=== PATIENT | female | born 1985 | race Caucasian/White ===

== ENCOUNTER 2017-04-21 11:02 | Outpatient (RCR) | payer OTHER | END 2017-05-30 | disposition home or self-care (01) | LOC: CARD 11:02 | PROVIDERS: ATTEND Nurse Practitioner Family | DX: R00.2 Palpitations (principal) | CPT/HCPCS: 93225; 93226 ==

== ENCOUNTER → 2017-04-21 | Outpatient (CLI) | payer OTHER ==
[~2017-04-21] MED LIST: ACHYD1T PO; AZIT-21 PO; DCS100C PO; HYDR-3583 PO; IBP800T PO; ONDAN4ODT PO; PRC25SU PR; PREN1TAB39; PREN1TAB39 PO
--- NOTE | 2017-04-21 12:55 | Diagnostic Imaging Report ---
INDICATION: Enlarged thyroid gland TECHNIQUE: Grayscale sonographic images of the thyroid gland. CORRELATION STUDY: None FINDINGS: RIGHT LOBE: 4.5 x 1.4 x 1.5 cm. There is normal echotexture about the right lobe. LEFT LOBE: 3.9 x 1.6 x 1.3 cm. There is normal echotexture about the left lobe. Isthmus appears unremarkable. IMPRESSION: Right lobe slightly elongated but otherwise within normal limits. There is otherwise unremarkable appearing thyroid ultrasound examination. Dictated by: Dictated on workstation # [id number]
== END ==
LOC: RAD 10:55
PROVIDERS: ATTEND Nurse Practitioner Family
DX: E04.9 Nontoxic goiter, unspecified (principal)
CPT/HCPCS: 76536

== ENCOUNTER 2018-04-14 11:34 | Outpatient (CLI) | payer OTHER ==
[~2018-04-14] VITALS: Ht 160 cm; Wt 97.1 kg
[2018-04-15] MEDS ORDERED: OXYC-197 PO (12:06)
[2018-04-15] MEDS ORDERED: IBUP-1780 PO (12:06)
== END 2018-04-14 13:28 | disposition home or self-care (01) ==
LOC: PREOP 11:34
PROVIDERS: ATTEND Obstetrics & Gynecology
DX: Z01.818 Encounter for other preprocedural examination (principal)

== ENCOUNTER 2018-04-15 10:09 | Day surgery (SDC) | payer OTHER ==
[~2018-04-15] VITALS: Ht 160 cm; Wt 97.1 kg
[2018-04-15 10:15] VITALS: BP 140/92
[2018-04-15 10:43] LABS: BASOPHILS % (AUTO) 0 % (0-10); EOSINOPHILS # (AUTO) 0.1 10^3/uL (0.0-0.3); EOSINOPHILS % (AUTO) 1 % (0-10); HEMATOCRIT 38 % (35-52); HEMOGLOBIN 13.6 G/DL (11.5-16.0); LYMPHOCYTES # (AUTO) 1.7 X 10^3 (1.0-4.0); LYMPHOCYTES % (AUTO) 18 % (12-44); MEAN CORPUSCULAR HEMOGLOBIN 30 PG (25-34); MEAN CORPUSCULAR HGB CONC 36 G/DL (32-36); MEAN CORPUSCULAR VOLUME 83 FL (80-99); MEAN PLATELET VOLUME 10.2 FL (7.4-10.4); MONOCYTES # (AUTO) 0.4 X 10^3 (0.0-1.0); MONOCYTES % (AUTO) 4 % (0-12); NEUTROPHILS # (AUTO) 7.4 X 10^3 (1.8-7.8); NEUTROPHILS % (AUTO) 78 % (42-75); PLATELET COUNT 196 10^3/uL (130-400); RED BLOOD COUNT 4.59 10^6/uL (4.35-5.85); RED CELL DISTRIBUTION WIDTH 12.9 % (10.0-14.5); WHITE BLOOD COUNT 9.5 10^3/uL (4.3-11.0)
[2018-04-15] MEDS ORDERED: ceFAZolin INJECTION 1,000 MG in NS (IVPB) 50 ML IV ONE (10:45)
[2018-04-15] MEDS ORDERED: SUCCINYLCHOLINE INJ 100 MG/5 ML SYR ONE (11:29)
[2018-04-15] MEDS ORDERED: ROCURONIUM 10 MG/ML 5 ML SYRINGE IV ONE (11:29)
[2018-04-15] MEDS ORDERED: ONDANSETRON 4 MG/2 ML (SDV) Z0FRAN ONE (11:29)
[2018-04-15] MEDS ORDERED: LACTATED RINGERS 0 ML IV ONE (11:29)
[2018-04-15] MEDS ORDERED: proPOfol 200 MG/20 ML (DIPRIVAN) VIAL IV ONE (11:29)
[2018-04-15] MEDS ORDERED: LIDOCAINE PF 2% 5 ML (XYLOCAINE) VIAL ONE (11:29)
[2018-04-15] MEDS ORDERED: MIDAZOLAM 2 MG/2 ML (VERSED) VIAL IV ONE (11:30)
[2018-04-15] MEDS ORDERED: MIDAZOLAM 2 MG/2 ML (VERSED) VIAL ONE (11:30)
[2018-04-15] MEDS ORDERED: fentaNYL INJECTION 100 MCG/2 ML AMP ONE (11:30)
[2018-04-15] MEDS: LACTATED RINGERS 1,000 ML IV PRN ×2 (11:33→12:53)
--- NOTE | 2018-04-15 12:02 | Progress Note-Pre Operative ---
Pre-Operative Progress Note H&P Reviewed The H&P was reviewed, patient examined and no changes noted. Date Seen by Provider: Apr 15, 2018 Time Seen by Provider: 12:02 Date H&P Reviewed: Apr 15, 2018 Time H&P Reviewed: 12:02 Pre-Operative Diagnosis: Missed /intrauterine demise KY MENDOZA MD Apr 15, 2018 12:02 pm
[2018-04-15] MEDS ORDERED: D5 LR IV SOLUTION 1,000 ML IV SCH (12:03)
--- NOTE | 2018-04-15 12:03 | Progress Note-Post Operative ---
Post-Operative Progess Note Surgeon (s)/Speech Writer (s) Surgeon KY MENDOZA MD Speech Writer: NONE Pre-Operative Diagnosis Missed /intrauterine demise Post-Operative Diagnosis Same with pathology pending Procedure & Operative Findings Date of Procedure 04/15/18 Procedure Performed/Findings D&C for first trimester missed Anesthesia Type GETA Estimated Blood Loss Estimated blood loss (mL): 50-100cc Specimens/Packing Specimens Removed Uterine contents/products of conception Packing: None KY MENDOZA MD Apr 15, 2018 12:03
[2018-04-15] MEDS ORDERED: OXYC-197 PO (12:06)
[2018-04-15] MEDS ORDERED: IBUP-1780 PO (12:06)
--- NOTE | 2018-04-15 12:07 | Discharge Instructions ---
Discharge Instructions Discharge Medications New, Converted or Re-Newed RX: RX on Chart Patient Instructions Patient Instructions: As directed Return to The Hospital For: As directed Activity & Diet Discharge Diet: No Restrictions Activity as Tolerated: No Orders-Post D/C & Referrals Follow Up Appt: Call to make follow up appt. for patient in 2 weeks. Activity: as tolerated. Please call in RX to patient pharmacy. Diet: As tolerated-Clear Liquids only if nauseated. may shower or tub bathe as desired. No nothing per vagina (no tampons, douching, or intercoarse) for 2 weeks. Patient to return to the clinic as soon as possible for: Temperature greater than 101F, Severe Pain, Foul discharge from incision or vagina, Excessive Bleeding (more than a period). KY MENDOZA MD Apr 15, 2018 12:07 pm
[2018-04-15] MEDS ORDERED: MEPERIDINE (DEMEROL) INJ 100 MG/ML IM ONE (12:15)
[2018-04-15] MEDS ORDERED: PROMETHAZINE INJ 25 MG/ML (PHENERGAN) AMP IM ONE (12:15)
[2018-04-15] MEDS ORDERED: KETOROLAC 30 MG/ML VIAL IVP ONE (12:15)
[2018-04-15] MEDS ORDERED: ONDANSETRON 4 MG/2 ML (SDV) Z0FRAN IVP PRN ×2 (12:15→13:00)
[2018-04-15] MEDS ORDERED: oxyCODONE/APAP 5/325MG (PERCOCET 5) TABLET PO PRN (12:15)
[2018-04-15] MEDS ORDERED: SEVOFLURANE (ULTANE) 15 ML INHAL SOLN ONE (12:40)
[2018-04-15] MEDS ORDERED: morphine INJ 10 MG/ML 1ML (SYR OR VIAL) ONE (12:47)
[2018-04-15] MEDS: morphine INJ 10 MG/ML 1ML (SYR OR VIAL) IVP PRN ×2 (12:54→13:00)
[2018-04-15] MEDS ORDERED: LACTATED RINGERS 1,000 ML IV ONE (12:55)
[2018-04-15] MEDS ORDERED: PROMETHAZINE INJ 25 MG/ML (PHENERGAN) AMP IVP PRN (13:00)
[2018-04-15] MEDS ORDERED: MEPERIDINE (DEMEROL) INJ 50 MG/ML IVP PRN (13:00)
[2018-04-15] MEDS ORDERED: HYDROmorphone 2 MG/ML VIAL (DILAUDID) IV PRN (13:00)
[2018-04-15 13:35] VITALS: BP 104/72
--- NOTE | 2018-04-15 13:47 | OPERATIVE REPORT ---
DATE OF SERVICE: 04/15/2018 PREOPERATIVE DIAGNOSIS: First trimester missed . POSTOPERATIVE DIAGNOSIS: First trimester missed . OPERATIVE PROCEDURE: D and C. OPERATIVE DESCRIPTION: With the patient in the supine position under satisfactory general anesthesia, she was repositioned in dorsal lithotomy position in the [facility][note 3] stirrups and prepped and draped in the usual fashion for vaginal surgery. Urinary bladder was drained with a straight catheter. A weighted speculum was placed in the posterior fornix of vagina, cervix was exposed and grasped anteriorly with a single tooth tenaculum. Uterus was sounded to 14.5 cm with uterine sound. The cervix was then serially dilated with Patrick dilators to a #20 Patrick and then a 19 Hegar dilator was the final step in dilation. A curved suction curette was then introduced. A #10 uterine cavity was curettaged with removal of a large amount of trophoblastic and decidual appearing tissue, blood clot, amniotic fluid and debris. All of that tissue was collected and sent to pathology for permanent section. The endometrial cavity was sharply curettaged in all 4 quadrants to good uterine cry. The curved suction curette was reintroduced. All blood clot and debris was evacuated from the uterine cavity. The tenaculum was removed. There was no bleeding from the puncture site. There was minimal bleeding from the cervical os. The uterus was 12 week size prior to the procedure and at this point now was decreased in size to 8 to 10 weeks and was nicely contracted. The patient tolerated the procedure well. Sponge and needle counts were correct at the end of procedure. Estimated blood loss was around 5200 mL. The patient was uneventfully awakened from her general anesthesia and transferred to the recovery room in stable condition with plans for discharge home PAR. Job ID: [id number] DocumentID: [id number] Dictated Date: 04/15/2018 12:35:47 Vermin Exterminator Date: 04/15/2018 13:46:47 Dictated By: KY MENDOZA MD
--- NOTE | 2018-04-15 14:01 | Anesthesia-General Post-Op ---
General Patient Condition Mental Status/LOC: Same as Preop Cardiovascular: Satisfactory Nausea/Vomiting: Absent Respiratory: Satisfactory Pain: Controlled Complications: Absent Post Op Complications Complications None Follow Up Care/Instructions Patient Instructions None needed. Anesthesia/Patient Condition Patient Condition Patient is doing well, no complaints, stable vital signs, no apparent adverse anesthesia problems. No complications reported per nursing. D/C home per [facility] Criteria: Yes ALENA BENITO CRNA Apr 15, 2018 14:01
[2018-04-15 14:05] VITALS: BP 113/68
[2018-04-15] MEDS ORDERED: oxyCODONE/APAP 5/325MG (PERCOCET 5) TABLET ONE (14:08)
[2018-04-15 14:35] VITALS: BP 126/81
--- OUTSIDE RECORDS SUMMARY | 2018-04-16 11:11 | XMS REPORT ---
Author Author [facility] Address [address] [place] [address] Care Team Providers Care Scientific Technical Writer Name Role Phone DANNIE BOYCE Unavailable PROBLEMS Unknown Problems ALLERGIES Substance Reaction Event Type Date Status PredniSONE Unknown Drug Allergy Oct, Active SOCIAL HISTORY Never Assessed PLAN OF CARE Activity Details Follow Up prn Reason: VITAL SIGNS Weight 197.0 lbs 2016-10-30 Temperature 97.6 degrees Fahrenheit 2016-10-30 Heart Rate 92 bpm 2016-10-30 Respiratory Rate 20 2016-10-30 Blood pressure systolic 128 mmHg 2016-10-30 Blood pressure diastolic 84 mmHg 2016-10-30 MEDICATIONS Medication Instructions Dosage Frequency Start Date End Date Duration Status Amoxicillin Active Azithromycin 250 MG Orally Once a day 2 tablets on the first day, then 1 tablet daily for 4 days 24h Oct, Oct, 5 day(s) Active Wellbutrin Active RESULTS No Results PROCEDURES No Known procedures IMMUNIZATIONS No Known Immunizations
--- OUTSIDE RECORDS SUMMARY | 2018-04-16 11:11 | XMS REPORT ---
Author Author ALIRIO CAMPOS [facility] Address [address] [place] [address] Care Team Providers Care Rehabilitation Services Aide Name Role Phone ALIRIO CAMPOS Unavailable PROBLEMS Unknown Problems ALLERGIES No Information ENCOUNTERS Encounter Location Date Diagnosis [facility] [address] [facility] [id number] [address] Feb, Encounter for immunization Z23 [facility] IN [facility] [address] [facility] [id number], [place] [address] Oct, Acute upper respiratory infection, unspecified J06.9 and Other viral agents as the cause of diseases classified elsewhere B97.89 IMMUNIZATIONS Vaccine Route Administration Date Status TDAP (BOOSTRIX) IM Intramuscular March 09, 2017 Administered VARICELLA IM Intramuscular March 09, 2017 Administered SOCIAL HISTORY Never Assessed REASON FOR VISIT TDAP and Varicella Vx. JOE Slade. PLAN OF CARE VITAL SIGNS MEDICATIONS Unknown Medications RESULTS No Results PROCEDURES Procedure Date Ordered Result Body Site TDAP (BOOSTRIX) March 09, 2017 VARICELLA March 09, 2017 IMMUNIZATION ADMIN, EACH ADD (please include units) March 09, 2017 SINGLE IMMUNIZATION ADMIN March 09, 2017 INSTRUCTIONS MEDICATIONS ADMINISTERED No Known Medications
== END 2018-04-15 14:40 | disposition home or self-care (01) ==
LOC: SDC 10:09
PROVIDERS: ATTEND Obstetrics & Gynecology
DX: O02.1 Missed abortion (principal); Z11.2 Encounter for screening for other bacterial diseases; J45.909 Unspecified asthma, uncomplicated
CPT/HCPCS: 36415; 85025; 87081

== ENCOUNTER → 2019-08-23 | Outpatient (CLI) | payer OTHER ==
[~2019-08-23] MED LIST changes: +IBUP-1780 PO; +OXYC1TAB87 PO
[2019-08-23 11:22] LABS: URINE CREATININE FOR RATIO 38 MG/DL (30-125); URINE PROTEIN FOR RATIO ONLY < 6 MG/DL (6-12)
== END ==
LOC: LABNPT 10:54
PROVIDERS: ATTEND Obstetrics & Gynecology
DX: O14.03 Mild to moderate pre-eclampsia, third trimester (principal)
CPT/HCPCS: 82570; 84156

== ENCOUNTER → 2019-09-01 | Outpatient (CLI) | payer OTHER, BC ==
[~2019-09-01] MED LIST changes: +ACET-2469 PO; +ASPI-999 PO; +DOCU100C37 PO; +LORA10TA76 PO; +OXYC1TAB12 PO; +PREN-142 PO
== END ==
LOC: LABNPT 09:00
PROVIDERS: ATTEND Obstetrics & Gynecology
DX: Z01.89 Encounter for other specified special examinations (principal)
CPT/HCPCS: 82570; 84156

== ENCOUNTER 2019-09-05 03:16 | Inpatient (IN) | payer OTHER, BC ==
[~2019-09-05] VITALS: Ht 160 cm; Wt 103.8 kg
[~2019-09-05 03:16] MED LIST changes: -ACET-2469 PO; -ASPI-999 PO; -DOCU100C37 PO; -LORA10TA76 PO; -OXYC1TAB12 PO; -PREN-142 PO
--- NOTE | 2019-09-05 03:25 | NUR ---
EYAL REDDY presented to unit via AMBULATORY from ED, accompanied by S/O, with c/o CONTRACTIONS. EYAL REDDY weighed, gowned, voided, and to bed. EFHM and TOCO applied, VS taken. EYAL REDDY oriented to bed controls, call light, TV, heat, and A/C controls. ABOVE DETAILS AND FOLLOWING ASSESSMENTS PERFORMED PER OSBALDO URBANO.
[2019-09-05] MEDS ORDERED: D5 LR IV SOLUTION 1,000 ML IV ONE ×2 (03:48→05:30)
[2019-09-05] MEDS ORDERED: LOPERAMIDE 2 MG (IMODIUM) TABLET PO ONE (04:00)
[2019-09-05] MEDS ORDERED: LOPERAMIDE 2 MG (IMODIUM) TABLET PO PRN (04:00)
[2019-09-05 04:21] LABS: BASOPHILS % (AUTO) 0 % (0-10); EOSINOPHILS % (AUTO) 0 % (0-10); HEMATOCRIT 39 % (35-52); HEMOGLOBIN 13.2 G/DL (11.5-16.0); LYMPHOCYTES # (AUTO) 0.4 X 10^3 (1.0-4.0); LYMPHOCYTES % (AUTO) 4 % (12-44); MEAN CORPUSCULAR HEMOGLOBIN 29 PG (25-34); MEAN CORPUSCULAR HGB CONC 34 G/DL (32-36); MEAN CORPUSCULAR VOLUME 86 FL (80-99); MEAN PLATELET VOLUME 11.3 FL (7.4-10.4); MONOCYTES # (AUTO) 0.4 X 10^3 (0.0-1.0); MONOCYTES % (AUTO) 3 % (0-12); NEUTROPHILS # (AUTO) 10.4 X 10^3 (1.8-7.8); NEUTROPHILS % (AUTO) 93 % (42-75); PLATELET COUNT 154 10^3/uL (130-400); RED CELL DISTRIBUTION WIDTH 15.6 % (10.0-14.5); WHITE BLOOD COUNT 11.2 10^3/uL (4.3-11.0)
[2019-09-05] MEDS: ONDANSETRON 4 MG/2 ML (SDV) Z0FRAN IVP PRN ×2 (04:22→06:22)
[2019-09-05 04:23] LABS: CLARITY,URINE CLEAR; COLOR,URINE YELLOW; GLUCOSE, URINE (UA) NEGATIVE (NEGATIVE); KETONES,URINE 3+ (NEGATIVE); LEUKOCYTE ESTERASE ,URINE NEGATIVE (NEGATIVE); NITRITE,URINE NEGATIVE (NEGATIVE); PROTEIN,URINE 1+ (NEGATIVE)
[2019-09-05] MEDS: D5 LR IV SOLUTION 1,000 ML IV SCH ×3 (04:23→17:30)
[2019-09-05 04:41] LABS: BUN/CREATININE RATIO 17; CARBON DIOXIDE 16 MMOL/L (21-32); CHLORIDE 107 MMOL/L (98-107); CREATININE SERUM 0.66 MG/DL (0.60-1.30); POTASSIUM 4.1 MMOL/L (3.6-5.0); SODIUM 138 MMOL/L (135-145)
[2019-09-05 04:42] LABS: ALANINE AMINOTRANSFERASE 11 U/L (0-55); ALBUMIN 3.6 GM/DL (3.2-4.5); ALKALINE PHOSPHATASE 98 U/L (40-136); BILIRUBIN,TOTAL 0.4 MG/DL (0.1-1.0); CALCIUM 9.4 MG/DL (8.5-10.1); GFR ESTIMATED > 60; GLUCOSE 100 MG/DL (70-105); TOTAL PROTEIN 6.4 GM/DL (6.4-8.2)
[2019-09-05 04:43] VITALS: BP 121/77
[2019-09-05 04:44] LABS: BACTERIA,URINE MODERATE /HPF; SQUAMOUS EPITHELIAL CELL,UR 0-2 /HPF
[2019-09-05 04:45] LABS: BILIRUBIN,URINE 1+ (NEGATIVE)
[2019-09-05] MEDS ORDERED: PREN-142 PO (05:04)
[2019-09-05] MEDS ORDERED: ASPI-999 PO (05:04)
[2019-09-05] MEDS ORDERED: LORA10TA76 PO (05:05)
[2019-09-05] MEDS ORDERED: ACET-2469 PO (05:06)
[2019-09-05 07:00] VITALS: BP 122/74
--- NOTE | 2019-09-05 07:50 | NUR ---
Dr Chisholm here to see pt. Plan to keep OBS overnight and do C/S tomorrow. Orders rec'd to advance diet as tolerated, betamethasone, and NST q shift. Addendum: 09/05/19 at 0928 by AJ SUERO RN Fresh ice water and sprite provided.
--- NOTE | 2019-09-05 07:52 | History & Physical ---
History and Physical Date Seen by Provider: Sep 05, 2019 Time Seen by Provider: 07:46 This patient is a 34-year-old A1 2 white female currently at 36- 6/7 weeks' gestation. Her previous pregnancies were complicated by preeclampsia and severe preeclampsia. Patient presented with complaint of nausea vomiting and diarrhea that was unrelenting. She also complained of painful and frequent contractions. She denies rupture membranes or bleeding. She has mild headache. A GBS culture done after 35 weeks gestation was negative. Allergies are to prednisone Medications are LDA, vitamins and Claritin when necessary Medical social and surgical histories are per the antepartum record HEENT exam is normal Neck is supple no lymphadenopathy no thyromegaly Abdomen is gravid soft nontender nondistended Extremities show no clubbing or cyanosis. There is no Homans sign. There is fairly notable pretibial pitting edema. Pelvic exam is deferred - on admission the cervix was closed and thick per the admission nurse monitor shows persistent and regular contractions contractions that are spacing out some from the frequency at time of admission. heart rate pattern is normal and reassuring. Vital Signs Date Time Temp Pulse Resp B/P (MAP) Pulse Ox O2 Delivery O2 Flow Rate FiO2 09/05/19 07:00 114 122/74 (90) 09/05/19 04:43 36.7 139 18 97 Room Air 09/05/19 03:50 122 98 Room Air Laboratory Tests Test 09/05/19 04:00 Range/Units White Blood Count 11.2 H 4.3-11.0 10^3/uL Red Blood Count 4.53 4.35-5.85 10^6/uL Hemoglobin 13.2 11.5-16.0 G/DL Hematocrit 39 35-52 % Mean Corpuscular Volume 86 80-99 FL Mean Corpuscular Hemoglobin 29 25-34 PG Mean Corpuscular Hemoglobin Concent 34 32-36 G/DL Red Cell Distribution Width 15.6 H 10.0-14.5 % Platelet Count 154 130-400 10^3/uL Mean Platelet Volume 11.3 H 7.4-10.4 FL Neutrophils (%) (Auto) 93 H 42-75 % Lymphocytes (%) (Auto) 4 L 12-44 % Monocytes (%) (Auto) 3 0-12 % Eosinophils (%) (Auto) 0 0-10 % Basophils (%) (Auto) 0 0-10 % Neutrophils # (Auto) 10.4 H 1.8-7.8 X 10^3 Lymphocytes # (Auto) 0.4 L 1.0-4.0 X 10^3 Monocytes # (Auto) 0.4 0.0-1.0 X 10^3 Eosinophils # (Auto) 0.0 0.0-0.3 10^3/uL Basophils # (Auto) 0.0 0.0-0.1 10^3/uL Urine Color YELLOW Urine Clarity CLEAR Urine pH 6.0 5-9 Urine Specific [place] 1.025 H 1.016-1.022 Urine Protein 63 H 6-12 MG/DL Urine Glucose (UA) NEGATIVE NEGATIVE Urine Ketones 3+ H NEGATIVE Urine Nitrite NEGATIVE NEGATIVE Urine Bilirubin 1+ H NEGATIVE Urine Urobilinogen 0.2 < = 1.0 MG/DL Urine Leukocyte Esterase NEGATIVE NEGATIVE Urine RBC (Auto) TRACE-I NEGATIVE Urine RBC NONE /HPF Urine WBC NONE /HPF Urine Squamous Epithelial Cells 0-2 /HPF Urine Crystals NONE /LPF Urine Bacteria MODERATE H /HPF Urine Casts NONE /LPF Urine Mucus MODERATE H /LPF Urine Culture Indicated NO Urine Creatinine 244 H 30-125 MG/DL Urine Protein/Creatinine Ratio 0.26 Sodium Level 138 135-145 MMOL/L Potassium Level 4.1 3.6-5.0 MMOL/L Chloride Level 107 98-107 MMOL/L Carbon Dioxide Level 16 L 21-32 MMOL/L Anion Gap 15 H 5-14 MMOL/L Blood Urea Nitrogen 11 7-18 MG/DL Creatinine 0.66 0.60-1.30 MG/DL Estimat Glomerular Filtration Rate > 60 BUN/Creatinine Ratio 17 Glucose Level 100 70-105 MG/DL Uric Acid 6.0 2.6-7.2 MG/DL Calcium Level 9.4 8.5-10.1 MG/DL Corrected Calcium 9.7 8.5-10.1 MG/DL Total Bilirubin 0.4 0.1-1.0 MG/DL Aspartate Amino Transf (AST/SGOT) 15 5-34 U/L Alanine Aminotransferase (ALT/SGPT) 11 0-55 U/L Alkaline Phosphatase 98 40-136 U/L Lactate Dehydrogenase 149 125-220 U/L Total Protein 6.4 6.4-8.2 GM/DL Albumin 3.6 3.2-4.5 GM/DL Lab work is consistent with mild dehydration and with increasing proteinuria Assessment and plan 36-6/7 week gestation in patient developing preeclampsia as evidenced by urine protein creatinine ratio of 0.26 compared to a level 0.11 four days ago Patient is having fairly regular contractions consistent with labor. At this point we would not consider tocolysis but would proceed with if labor is confirmed Patient appears to have a viral syndrome with persistent nausea vomiting and diarrhea. She is being hydrated previous symptomatically. We'll continue that management through the day and when the patient obtains 37 weeks' gestation for her consider proceeding with delivery due to her preeclampsia Viral syndrome/early preeclampsia/ labor Allergies and Home Medications Allergies Coded Allergies: prednisone (Unverified Allergy, Unknown, 04/15/18) Home Medications Acetaminophen/Diphenhydramine 1 Each Tablet, 1 EACH PO DAILY, (Reported) Aspirin 81 Mg Tab.chew, 81 MG PO DAILY, (Reported) Loratadine 10 Mg Tablet, 10 MG PO DAILY, (Reported) Vit No.124/Iron/FA 1 Each Tablet, 1 EACH PO DAILY, (Reported) Patient Home Medication List Home Medication List Reviewed: Yes KY MENDOZA MD Sep 05, 2019 07:52
[2019-09-05 08:00] VITALS: BP 131/76
[2019-09-05] MEDS: BETAMETHASONE ACE/NA PHOS 6 MG/ML (CELESTONE SOLUSPAN) IM SCH (08:49)
--- NOTE | 2019-09-05 09:00 | NUR ---
Pt moved to room 302 via ambulation accompanied by RN. All personal belongings moved along with pt. Pt oriented to room and call light. No questions or needs voiced at this time.
--- NOTE | 2019-09-05 11:50 | NUR ---
To room to check on pt. Pt reports continued nausea and diarrhea x2. Dr. Chisholm called and notified of zofran usage to this point, and updated on continued diarrhea, RN requesting Reglan or Promethazine. Orders rec'd.
[2019-09-05] MEDS ORDERED: METOCLOPRAMIDE INJ 10 MG/2 ML (REGLAN) ONE (11:59)
[2019-09-05 12:00] VITALS: BP 146/81
[2019-09-05] MEDS: METOCLOPRAMIDE INJ 10 MG/2 ML (REGLAN) IVP SCH (12:05)
[2019-09-05] MEDS ORDERED: CATHETER FLUSH 10 ML SYR IV PRN (12:15)
--- NOTE | 2019-09-05 15:02 | NUR ---
Pt c/o back pain d/t hospital bed and wrist pain related to carpal tunnel. Dr. Chisholm notified, order rec'd for tylenol.
[2019-09-05] MEDS ORDERED: ACETAMINOPHEN 500 MG TAB (TYLENOL) PO PRN (15:30)
[2019-09-05 16:00] VITALS: BP 138/79
--- NOTE | 2019-09-05 17:15 | NUR ---
Dr. Chisholm here to see pt. Plan to keep pt as obs. Pt to eat breakfast in AM and plan for possibly c/s tomorrow afternoon/evening.
[2019-09-05 21:00] VITALS: BP 132/76
--- NOTE | 2019-09-05 21:00 | NUR ---
Pt up ambulating in mohawk, pt completed shower and has no complaints at this time.
[2019-09-06] VITALS (17 sets, daily range): BP systolic 95–138; BP diastolic 52–85
[2019-09-06] MEDS: D5 LR IV SOLUTION 1,000 ML IV SCH ×3 (02:27→21:20)
--- NOTE | 2019-09-06 07:46 | NUR ---
Dr. Chisholm here to see pt. Plan to do c/s this evening as pt ate breakfast
--- NOTE | 2019-09-06 07:53 | Progress Note ---
Standard Progress Note Progress Notes/Assess & Plan Date Seen by a Provider: Sep 06, 2019 Time Seen by a Provider: 07:49 Progress/Assessment & Plan This patient is now without complaint she is ambulating, voiding, tolerating oral intake, patient denies chest pain, not shortness of breath, denies headache, denies nausea or vomiting, he has had no diarrhea since last evening. She does feel occasional contractions. Vital Signs Date Time Temp Pulse Resp B/P (MAP) Pulse Ox O2 Delivery O2 Flow Rate FiO2 09/06/19 04:00 36.2 83 18 98/55 (69) 09/06/19 00:00 36.1 81 18 117/58 (77) 09/05/19 21:00 36.6 86 18 132/76 (94) 98 09/05/19 16:00 37.0 104 18 138/79 (98) 09/05/19 12:00 37.4 103 18 146/81 (102) 98 09/05/19 08:00 118 131/76 (94) I & O 09/06/19 07:00 Intake Total 2000 ml Balance 2000 ml Blood pressures are acceptable The abdomen is benign Extremities show no clubbing or cyanosis, there is no Homans sign, DTRs are brisk Assessment and plan hospital day 2 patient now at 37 weeks gestation and mild preeclampsia and with resolving viral gastroenteritis. We will maintain nothing by mouth through the day and proceed with this afternoon KY MENDOZA MD Sep 06, 2019 07:53
[2019-09-06] MEDS ORDERED: ceFAZolin INJECTION 2,000 MG in WATER (STERILE) FOR INJECTION 10 ML IV ONE (08:00)
[2019-09-06] MEDS ORDERED: metroNIDAZOLE 500MG/100ML IVPB 100 ML IV ONE (08:00)
[2019-09-06] MEDS: BETAMETHASONE ACE/NA PHOS 6 MG/ML (CELESTONE SOLUSPAN) IM SCH (09:00)
[2019-09-06] MEDS: LACTATED RINGERS 1,000 ML IV PRN ×2 (14:31→16:45)
[2019-09-06] MEDS ORDERED: ceFAZolin 2 GM/50 ML NS 50 ML ONE (15:21)
[2019-09-06] MEDS ORDERED: metroNIDAZOLE 500MG/100ML IVPB 100 ML ONE (15:21)
[2019-09-06] MEDS ORDERED: FAMOTIDINE 20MG/2ML IV (PEPCID) ONE (15:22)
[2019-09-06] MEDS ORDERED: CITRIC ACID/SOB CIT (BICITRA) 30 ML UDC ONE (15:22)
[2019-09-06] MEDS ORDERED: METOCLOPRAMIDE INJ 10 MG/2 ML (REGLAN) ONE (15:22)
[2019-09-06] MEDS ORDERED: fentaNYL INJECTION 100 MCG/2 ML AMP ONE (15:28)
[2019-09-06] MEDS: METOCLOPRAMIDE INJ 10 MG/2 ML (REGLAN) IVP SCH ×2 (15:32→21:20)
[2019-09-06] MEDS ORDERED: OXYTOCIN/NORMAL SALINE 1,000 ML IV ONE (15:39)
[2019-09-06] MEDS ORDERED: OXYTOCIN/NORMAL SALINE 500 ML IV SCH (17:02)
[2019-09-06] MEDS ORDERED: D5 LR IV SOLUTION 1,000 ML IV SCH (17:02)
[2019-09-06] MEDS ORDERED: TETANUS,DIPTH,PERTUSS P/F (BOOSTRIX) 0.5 ML VIAL IM ONE (17:15)
[2019-09-06] MEDS ORDERED: ONDANSETRON 4 MG/2 ML (SDV) Z0FRAN IVP PRN (17:15)
[2019-09-06] MEDS ORDERED: KETOROLAC 30 MG/ML VIAL ONE (17:25)
[2019-09-06] MEDS ORDERED: BUPIVACAINE 0.5% 30 ML (SENSORCAINE) VIAL ONE (17:25)
[2019-09-06] MEDS: KETOROLAC 30 MG/ML VIAL IVP SCH ×2 (17:27→23:45)
--- NOTE | 2019-09-06 18:25 | NUR ---
Pt back to room 302 via bed accompanied by PACU staff. Report rec'd bedside from A Ady RN. Assessment completed, VS taken. IV pitocin to pump. FFU/1, light rubra lochia noted, no clots expressed. Fresh ice water provided. Pt denies needs or concerns at this time.
--- NOTE | 2019-09-06 19:30 | NUR ---
Pt sitting up in bed with family and friends. Pt eating with no concerns at this time. Pt denies pain.
[2019-09-06] MEDS: DOCUSATE SODIUM 100 MG (COLACE) CAP PO SCH (20:07)
--- NOTE | 2019-09-06 20:30 | NUR ---
Family left, fundal massage and change of pad. Minimal lochia noted. Ice pack to incision and pt resting well at this time.
[2019-09-06] MEDS ORDERED: DOCUSATE SODIUM 100 MG (COLACE) CAP PO SCH (21:00)
--- NOTE | 2019-09-06 22:39 | NUR ---
Pt up to void with little assistance from this RN. Pt assisted back to bed. with no concerns at this time.
[2019-09-07] VITALS: BP 102/59
--- NOTE | 2019-09-07 03:18 | OPERATIVE REPORT ---
DATE OF SERVICE: 09/06/2019 PREOPERATIVE DIAGNOSIS: A 37-week with preeclampsia and previous . POSTOPERATIVE DIAGNOSIS: A 37-week with preeclampsia and previous . OPERATIVE PROCEDURE: Repeat low transverse delivery of a viable male with Apgars of 7 and 9 at 1 and 5 minutes respectively, weight 7 pounds 3 ounces. time of 1703 and a cord blood pH of 7.31. OPERATIVE DESCRIPTION: With the patient in supine position under satisfactory spinal analgesia, she was prepped and draped in the usual fashion for abdominal surgery. Ocampo catheter was placed in the urinary bladder. A repeat Pfannenstiel incision made through the skin by removing the patient's previous Pfannenstiel incisional scars. The abdomen was then opened in the usual manner. Bladder retractor placed in position, clean scalpel used to make a 4 cm hysterotomy incision transversely across the lower uterine segment where there was a large uterine window comprised of membranes and peritoneum. There was virtually no myometrium in a window, which extended approximately 3 cm cephalad and 8 to 10 cm across the lower uterine segment. Incision was made at the upper margin of this window allowing copious release of clear fluid. Castro forceps were applied to facilitate delivery of the vigorous viable male . had stats as noted above. The infant was bulb suctioned on delivery of the head. A single nuchal cord was easily released and the delivery completed. The was then bulb suctioned again as the cord was doubly clamped and cut and the infant passed to the pediatric nurse in attendance for delivery. Cord bloods were obtained. The placenta delivered spontaneously Rosa. It was normal with a 3-vessel cord. The uterus was exteriorized and interior wiped clean with a wet laparotomy sponge. Uterine incision then closed with a running locked suture of 2-0 Vicryl. Care was taken to obliterate the lower uterine segment window reapproximating a good myometrium across the width of the incision. Hemostasis was complete. The uterus was returned to the abdominal cavity. All blood clot and debris was removed from the abdominal cavity. Sponge and needle counts correct and hemostasis assured. The anterior parietal peritoneum was closed with running suture of 2-0 Vicryl. Rectus muscles were closed with that suture. Rectus fascia was closed with 2-0 Vicryl, subcutaneous tissue was closed with 2-0 Vicryl and the skin was stapled. Sponge and needle counts were correct on completion of the procedure. Estimated blood loss was 500 mL. The patient tolerated the procedure well and remained in the operating room awaiting transfer to the recovery room. The infant had remained in the bedside infant warmer to pair with the mom on completion of the procedure. Job ID: [id number] DocumentID: [id number] Dictated Date: 09/06/2019 17:26:36 Briquetter Operator Date: 09/07/2019 03:18:20 Dictated By: KY MENDOZA MD
[2019-09-07 04:00] VITALS: BP 121/71
[2019-09-07] MEDS: oxyCODONE/APAP 10/325MG (PERCOCET 10) TABLET PO PRN ×3 (04:06→18:37)
--- NOTE | 2019-09-07 06:40 | Anesthesia-Regional Post-Op ---
Regional Patient Condition Mental Status: Alert, Oriented x3 Circulation: Same as Pre-Op Headache: Absent Sensation: Full Recovery Motor Block: Absent Post Op Complications Complications None Follow Up Care/Instructions Patient Instructions None needed. Anesthesia/Patient Condition Patient is doing well, no complaints, stable vital signs, no apparent adverse anesthesia problems. No complications reported per nursing. MARIUSZ NGUYEN CRNA Sep 07, 2019 06:40
--- NOTE | 2019-09-07 07:40 | Progress Note ---
Standard Progress Note Progress Notes/Assess & Plan Date Seen by a Provider: Sep 07, 2019 Time Seen by a Provider: 07:38 Progress/Assessment & Plan This patient is now without complaint she is ambulating, voiding, tolerating oral intake, patient denies chest pain, not shortness of breath, denies headache, denies nausea or vomiting, he has had no diarrhea since last evening. She does feel occasional contractions. Vital Signs Date Time Temp Pulse Resp B/P (MAP) Pulse Ox O2 Delivery O2 Flow Rate FiO2 09/06/19 04:00 36.2 83 18 98/55 (69) 09/06/19 00:00 36.1 81 18 117/58 (77) 09/05/19 21:00 36.6 86 18 132/76 (94) 98 09/05/19 16:00 37.0 104 18 138/79 (98) 09/05/19 12:00 37.4 103 18 146/81 (102) 98 09/05/19 08:00 118 131/76 (94) I & O 09/06/19 07:00 Intake Total 2000 ml Balance 2000 ml Blood pressures are acceptable The abdomen is benign Extremities show no clubbing or cyanosis, there is no Homans sign, DTRs are brisk Assessment and plan hospital day 2 patient now at 37 weeks gestation and mild preeclampsia and with resolving viral gastroenteritis. We will maintain nothing by mouth through the day and proceed with this afternoon September 07, 2019 This patient is without complaint. Vital Signs Date Time Temp Pulse Resp B/P (MAP) Pulse Ox O2 Delivery O2 Flow Rate FiO2 09/07/19 04:00 36.4 58 18 121/71 (88) 95 Room Air 09/07/19 00:00 36.3 64 18 102/59 (73) 95 Room Air 09/06/19 20:00 36.2 69 18 130/66 (87) 96 Room Air 09/06/19 18:30 36.6 55 18 114/65 (81) 98 Room Air 09/06/19 18:25 36.3 18 124/72 (89) 98 Room Air 09/06/19 18:25 Room Air 09/06/19 18:20 18 121/68 (85) 98 Room Air 09/06/19 18:15 Room Air 09/06/19 18:10 18 119/64 (82) 98 Room Air 09/06/19 18:05 Room Air 09/06/19 18:00 18 138/85 (102) 98 Room Air 09/06/19 17:55 Room Air 09/06/19 17:50 18 123/76 (92) 99 Room Air 09/06/19 17:45 Room Air 09/06/19 17:40 18 120/65 (83) 100 Room Air 09/06/19 17:31 36.4 18 116/72 (87) 100 Room Air 09/06/19 17:31 Room Air 09/06/19 15:45 80 134/80 (98) 09/06/19 15:30 75 123/80 (94) 09/06/19 15:10 71 120/73 (89) 09/06/19 15:00 36.4 77 18 98 Room Air 09/06/19 14:00 36.4 77 18 95/52 (66) 98 Room Air 09/06/19 09:02 36.6 89 18 108/56 (73) Room Air I & O 09/07/19 07:00 Intake Total 4450 ml Output Total 950 ml Balance 3500 ml vss/afb The abdomen is benign Extremities show no clubbing and no cyanosis there is some pretibial pitting edema there is no Homans sign Assessment and plan postoperative day number 1 doing well KY MENDOZA MD Sep 07, 2019 07:40
[2019-09-07] MEDS ORDERED: OXYC1TAB12 PO (07:44)
[2019-09-07] MEDS ORDERED: IBUP-1780 PO (07:44)
[2019-09-07] MEDS ORDERED: DOCU100C37 PO (07:44)
--- NOTE | 2019-09-07 07:44 | Discharge Instructions ---
Discharge Instructions Discharge Medications New, Converted or Re-Newed RX: RX on Chart Patient Instructions Return to The Hospital For: as directed Activity & Diet Discharge Diet: No Restrictions Activity as Tolerated: No Orders-Post D/C & Referrals Follow Up Appt: RTC 1 week for incision check. Call to make follow up appt. for patient in 4 weeks. Wound Care: Remove dhara, apply benzoin and steri strips. Activity Per routine post instructions. Please call in RX to patient pharmacy. Diet as tolerated Patient may shower or tub bathe as desired. Continue home meds KY MENDOZA MD Sep 07, 2019 07:44
[2019-09-07 08:10] VITALS: BP 115/59
--- NOTE | 2019-09-07 08:10 | NUR ---
A.M. ASSESSMENT COMPLETED. VSS. CARING FOR IN ROOM. SKIN TO SKIN.
[2019-09-07] MEDS: KETOROLAC 30 MG/ML VIAL IVP SCH ×2 (08:19→13:59)
[2019-09-07] MEDS: DOCUSATE SODIUM 100 MG (COLACE) CAP PO SCH ×2 (08:20→19:31)
--- NOTE | 2019-09-07 10:15 | NUR ---
CARING FOR INFANT IN ROOM. HAS ASSISTED WITH FEEDS.
--- NOTE | 2019-09-07 11:15 | NUR ---
SHOWERED WITHOUT PROBLEMS. OUT TO AMBULATE IN THE STAPLES PUSHING CRIB WITH SPOUSE AT SIDE. MOVES WELL.
[2019-09-07 11:28] VITALS: BP 120/66
--- NOTE | 2019-09-07 12:30 | NUR ---
RESTING QUIETLY. SPOUSE AT BEDSIDE. INFANT IN CRIB.
--- NOTE | 2019-09-07 14:07 | NUR ---
TDAP GIVEN IM IN LEFT DELTOID. SITE CLEAR. VISITORS AT BEDSIDE.
--- NOTE | 2019-09-07 14:50 | NUR ---
ABDOMINAL BINDER APPLIED PER PT REQUEST.
[2019-09-07 16:00] VITALS: BP 123/70
--- NOTE | 2019-09-07 16:00 | NUR ---
VSS. DENIES NEED FOR PERCOCET AT THIS TIME.
[2019-09-07] MEDS ORDERED: IBUPROFEN 800 MG (MOTRIN) TAB PO SCH (17:15)
--- NOTE | 2019-09-07 18:45 | NUR ---
EATING STORK MEAL. VISITORS AT BEDSIDE. PERCOCET GIVEN.
[2019-09-07 19:31] VITALS: BP 136/82
[2019-09-07] MEDS: IBUPROFEN 800 MG (MOTRIN) TAB PO SCH (19:31)
[2019-09-08] MEDS: IBUPROFEN 800 MG (MOTRIN) TAB PO SCH ×3 (01:45→13:49)
[2019-09-08 01:46] VITALS: BP 120/60
--- NOTE | 2019-09-08 07:46 | Progress Note ---
Standard Progress Note Progress Notes/Assess & Plan Date Seen by a Provider: Sep 08, 2019 Time Seen by a Provider: 07:43 Progress/Assessment & Plan This patient is now without complaint she is ambulating, voiding, tolerating oral intake, patient denies chest pain, not shortness of breath, denies headache, denies nausea or vomiting, he has had no diarrhea since last evening. She does feel occasional contractions. Vital Signs Date Time Temp Pulse Resp B/P (MAP) Pulse Ox O2 Delivery O2 Flow Rate FiO2 09/06/19 04:00 36.2 83 18 98/55 (69) 09/06/19 00:00 36.1 81 18 117/58 (77) 09/05/19 21:00 36.6 86 18 132/76 (94) 98 09/05/19 16:00 37.0 104 18 138/79 (98) 09/05/19 12:00 37.4 103 18 146/81 (102) 98 09/05/19 08:00 118 131/76 (94) I & O 09/06/19 07:00 Intake Total 2000 ml Balance 2000 ml Blood pressures are acceptable The abdomen is benign Extremities show no clubbing or cyanosis, there is no Homans sign, DTRs are brisk Assessment and plan hospital day 2 patient now at 37 weeks gestation and mild preeclampsia and with resolving viral gastroenteritis. We will maintain nothing by mouth through the day and proceed with this afternoon September 07, 2019 This patient is without complaint. Vital Signs Date Time Temp Pulse Resp B/P (MAP) Pulse Ox O2 Delivery O2 Flow Rate FiO2 09/07/19 04:00 36.4 58 18 121/71 (88) 95 Room Air 09/07/19 00:00 36.3 64 18 102/59 (73) 95 Room Air 09/06/19 20:00 36.2 69 18 130/66 (87) 96 Room Air 09/06/19 18:30 36.6 55 18 114/65 (81) 98 Room Air 09/06/19 18:25 36.3 18 124/72 (89) 98 Room Air 09/06/19 18:25 Room Air 09/06/19 18:20 18 121/68 (85) 98 Room Air 09/06/19 18:15 Room Air 09/06/19 18:10 18 119/64 (82) 98 Room Air 09/06/19 18:05 Room Air 09/06/19 18:00 18 138/85 (102) 98 Room Air 09/06/19 17:55 Room Air 09/06/19 17:50 18 123/76 (92) 99 Room Air 09/06/19 17:45 Room Air 09/06/19 17:40 18 120/65 (83) 100 Room Air 09/06/19 17:31 36.4 18 116/72 (87) 100 Room Air 09/06/19 17:31 Room Air 09/06/19 15:45 80 134/80 (98) 09/06/19 15:30 75 123/80 (94) 09/06/19 15:10 71 120/73 (89) 09/06/19 15:00 36.4 77 18 98 Room Air 09/06/19 14:00 36.4 77 18 95/52 (66) 98 Room Air 09/06/19 09:02 36.6 89 18 108/56 (73) Room Air I & O 09/07/19 07:00 Intake Total 4450 ml Output Total 950 ml Balance 3500 ml vss/afb The abdomen is benign Extremities show no clubbing and no cyanosis there is some pretibial pitting edema there is no Homans sign Assessment and plan postoperative day number 1 doing well September 08, 1999 Patient is without complaint she is requesting discharge home Vital Signs Date Time Temp Pulse Resp B/P (MAP) Pulse Ox O2 Delivery O2 Flow Rate FiO2 09/08/19 01:46 36.7 59 18 120/60 (80) 98 Room Air 09/07/19 19:31 36.8 77 18 136/82 (100) 97 Room Air 09/07/19 16:00 37.0 77 18 123/70 (87) 96 Room Air 09/07/19 11:28 36.5 63 18 120/66 (84) 97 Room Air 09/07/19 08:55 Room Air 09/07/19 08:10 36.6 68 18 115/59 (77) 96 Room Air I & O 09/08/19 07:00 Intake Total 2910 ml Output Total 2600 ml Balance 310 ml Vital signs are stable patient is afebrile Physical exam is unremarkable Extremities show no clubbing or cyanosis Assessment and plan post operative day number 2, plan for discharge home Final Diagnosis 37 weeks repeat KY MENDOZA MD Sep 08, 2019 07:46
--- NOTE | 2019-09-08 07:51 | Discharge Summary ---
Discharge Summary 37 weeks repeat delivery This patient is a 34-year-old white female admitted at 36-6/7 weeks' gestation with nausea vomiting and diarrhea and also with elevated blood pressure urine protein creatinine ratio of 0.26. She was treated symptomatically and on September 06, 2019 having attained 37 weeks gestation. delivery was unde rtaken due to preeclampsia On September 07, 2019 patient was ambulating, voiding, oral intake, her pressures were normalizing and patient was stable through the day Now on September 08, 2019 the patient again is without complaint and plan is for discharge home with follow-up in clinic Principal diagnoses this hospitalization is a 37 week repeat delivery Secondary diagnoses are preeclampsia, viral gastroenteritis, previous deliveries Operations and procedures include monitoring, intravenous hydration, spinal analgesia, and repeat delivery Patient was given appropriate discharge instructions Discharge medications are Percocet, Motrin, and Colace Clinical Quality Measures DVT/VTE Risk/Contraindication: Risk Factor Score Per Nursin RFS Level Per Nursing on Admit: 4+=Very High KY MENDOZA MD Sep 08, 2019 07:51
[2019-09-08 09:13] VITALS: BP 116/62
--- NOTE | 2019-09-08 09:13 | NUR ---
initial shift assessment completed, see interventions for further. POC reviewed, states understanding.
[2019-09-08] MEDS: oxyCODONE/APAP 10/325MG (PERCOCET 10) TABLET PO PRN ×2 (09:14→13:49)
[2019-09-08] MEDS: DOCUSATE SODIUM 100 MG (COLACE) CAP PO SCH (09:14)
[2019-09-08 13:51] VITALS: BP 142/78
--- NOTE | 2019-09-08 14:34 | NUR ---
dismissal instructions given, verbalizes understanding. reviewed follow up appointments and Rx's. signature page signed, placed on chart.
--- NOTE | 2019-09-08 14:43 | NUR ---
dhara dc'd. Benzoine and steri-strips applied per Dr's orders. incision edges well approximated, no sx's of infection noted. pt tolerated well.
--- NOTE | 2019-09-08 17:50 | NUR ---
Pt ambulated to private vehicle with this RN, and family member. infant secured in rear facing car seat. pt stable with no sx's of distress noted.
== END 2019-09-08 17:50 | disposition home or self-care (01) | DRG 788 ==
LOC: LDRP 03:16 → WSo 03:16 → LDRP 04:51 → OBSVTOIN 09-06 07:53
PROVIDERS: ADMIT Obstetrics & Gynecology; ATTEND Obstetrics & Gynecology
PROC: 10D00Z1 Extraction of Products of Conception, Low, Open Approach (ICD-10-PCS; principal; 2019-09-06 16:38)
DX: O14.04 Mild to moderate pre-eclampsia, complicating childbirth (principal); O60.23X0 Term delivery with preterm labor, third trimester, not applicable or unspecified; O34.211 Maternal care for low transverse scar from previous cesarean delivery; O69.81X0 Labor and delivery complicated by cord around neck, without compression, not applicable or unspecified; A08.4 Viral intestinal infection, unspecified; O99.284 Endocrine, nutritional and metabolic diseases complicating childbirth; E86.0 Dehydration; Z3A.36 36 weeks gestation of pregnancy; Z37.0 Single live birth; Z23 Encounter for immunization
CPT/HCPCS: 36415; 80053; 81000; 82570; 83615; 84156; 84550; 85025; 90715; 94664; G0378

== ENCOUNTER → 2019-09-06 | Outpatient (CLI) | payer OTHER, BC ==
[~2019-09-06] MED LIST changes: +ACET-2469 PO; +ASPI-999 PO; +DOCU100C37 PO; +LORA10TA76 PO; +OXYC1TAB12 PO; +PREN-142 PO
== END | disposition home or self-care (01) ==
LOC: PREOP 05:51
PROVIDERS: ATTEND Obstetrics & Gynecology
DX: Z01.818 Encounter for other preprocedural examination (principal)

== ENCOUNTER → 2020-07-16 | Outpatient (CLI) | payer OTHER ==
[~2020-07-16] MED LIST changes: -ACET-2469 PO; +ACET-3075 PO
== END ==
LOC: LAB 16:15
PROVIDERS: ATTEND Nurse Practitioner Family
DX: U07.1 COVID-19 (principal)
CPT/HCPCS: 36415; 86769